=== PATIENT | male | born 1945 | race Hispanic/Latino ===

== ENCOUNTER 2017-09-17 18:08 | Emergency (ER) | payer MEDICARE ==
[2017-09-17 18:17] VITALS: BP 107/57; PULSE 88; RESP 18; TEMP 98.5; O2SAT 96
--- NOTE | 2017-09-17 19:42 | ED PDOC ---
Lower Extremity Pain/Injury Time Seen by Provider: 09/17/17 18:19 Chief Complaint (Nursing): Lower Extremity Problem/Injury Chief Complaint (Provider): Lower Extremity Problem/Injury History Per: Patient Onset/Duration Of Symptoms: Other (x today) Current Symptoms Are (Timing): Still Present Additional Complaint(s): Nahid is a 72 year old male who was brought by EMS to the Emergency Department for leg pain today. Patient states today he was getting off the train where he developed pain in his leg. States he does get pain in leg intermittently due to PVD. Reports he attempted to sit down, but fell forward. Denies pain from fall, hip pain, pelvic pain, numbness, tingling, and head injury. PMD: No Provider Past Medical History Reviewed: Historical Data, Nursing Documentation, Vital Signs Vital Signs: Last Vital Signs Temp 98.5 F 09/17/17 18:14 Pulse 88 09/17/17 18:14 Resp 18 09/17/17 18:14 BP 107/57 L 09/17/17 18:14 Pulse Ox 96 09/17/17 18:14 - Medical History PMH: Emphysema - Surgical History Surgical History: Carotid Endarterectomy - Family History Family History: States: No Known Family Hx - Social History Current smoker - smoking cessation education provided: No Alcohol: None Drugs: Denies - Allergies Allergies/Adverse Reactions: Allergies Allergy/AdvReac Type Severity Reaction Status Date / Time Penicillins Allergy ANAPHYLAXIS Verified 09/17/17 18:31 Review of Systems ROS Statement: Except As Marked, All Systems Reviewed And Found Negative Musculoskeletal: Positive for: Leg Pain (Bilateral). Negative for: Other (hip pain, pelvic pain) Neurological: Negative for: Numbness, Other (Tingling, head injury) Physical Exam - Reviewed Nursing Documentation Reviewed: Yes Vital Signs Reviewed: Yes - Physical Exam Appears: Positive for: Non-toxic Respiratory: Negative for: Respiratory Distress Pulses-Dorsalis Pedis (L): 1+ Pulses-Dorsalis Pedis (R): 1+ Extremity: Positive for: Calf Tenderness (Bilateral), Other (Chronic Venous Changes on Bilateral Lower Extremity). Negative for: Swelling (No Calf) - Laboratory Results Result Diagrams: 09/17/17 20:28 09/17/17 20:28 - ECG O2 Sat by Pulse Oximetry: 96 (RA) Pulse Ox Interpretation: Normal - Radiology X-Ray: Interpreted by Me (b/l tib/fib x-ray) X-Ray Interpretation: No Acute Disease Medical Decision Making Medical Decision Making: Time: 18:32 Plan: - B-Type Natriuretic Peptide - CMP - CBC - Left Tibia Fibula X-Ray - Right Tibia Fibula X-Ray - Urinalysis - Duplex Lower Extremity Vein Bilateral Ultrasound Time: 20:15 Ultrasound Duplex Bilateral Lower Extremity Veins FINDINGS: Right deep veins: Unremarkable. No DVT in the right common femoral, femoral, proximal deep femoral or popliteal veins. The veins demonstrate normal color flow, are normally compressible, with normal phasic flow and/or augmentation response. Right superficial veins: Unremarkable. Left deep veins: Unremarkable. No DVT in the left common femoral, femoral, proximal deep femoral or popliteal veins. The veins demonstrate normal color flow, are normally compressible, with normal phasic flow and/or augmentation response. Left superficial veins: Unremarkable. Soft tissues: No acute findings. No popliteal cyst. IMPRESSION: Normal bilateral lower extremity duplex venous ultrasound. Upon further questioning pt. states his truck broke down today and he has been walking the entire day which he usually does not. Pt. with slow, unassisted, steady gait in ED. Scribe Attestation: Documented by Prashant Martinez, acting as a scribe for Young Ortiz PA-C Provider Scribe Attestation: All medical record entries made by the Scribe were at my direction and personally dictated by me. I have reviewed the chart and agree that the record accurately reflects my personal performance of the history, physical exam, medical decision making, and the department course for this patient. I have also personally directed, reviewed, and agree with the discharge instructions and disposition. Disposition - Clinical Impression Clinical Impression: Leg pain - Patient ED Disposition Is Patient to be Admitted: No - Disposition Disposition: Routine/Home Disposition Time: 21:29 Condition: STABLE Instructions: Leg Pain (ED) Forms: [facility] (Kiswahili) Print Language: MONGOLIAN
--- NOTE | 2017-09-17 20:15 | US ---
EXAM: US Duplex Bilateral Lower Extremity Veins CLINICAL HISTORY: 72 years old, male; Pain; Leg, lower; Bilateral TECHNIQUE: Real-time ultrasound scan of the veins of the bilateral lower extremities with color Doppler flow, spectral waveform analysis and compression. COMPARISON: No relevant prior studies available. FINDINGS: Right deep veins: Unremarkable. No DVT in the right common femoral, femoral, proximal deep femoral or popliteal veins. The veins demonstrate normal color flow, are normally compressible, with normal phasic flow and/or augmentation response. Right superficial veins: Unremarkable. Left deep veins: Unremarkable. No DVT in the left common femoral, femoral, proximal deep femoral or popliteal veins. The veins demonstrate normal color flow, are normally compressible, with normal phasic flow and/or augmentation response. Left superficial veins: Unremarkable. Soft tissues: No acute findings. No popliteal cyst. IMPRESSION: Normal bilateral lower extremity duplex venous ultrasound.
[2017-09-17 20:31] LABS: BASO # 0.1 K/uL (0.0-0.2); BASO % 0.8 % (0.0-2.0); EOS # 0.1 K/uL (0.0-0.7); EOS % 0.9 % (0.0-4.0); HEMATOCRIT 42.2 % (35.0-51.0); LYMPH # 1.7 K/uL (1.0-4.3); MEAN CELL VOLUME 94.8 fl (80.0-94.0); MEAN CORPUSCULAR HEMOGLOBIN 31.2 pg (27.0-31.0); MEAN PLATELET VOLUME 8.4 fl (7.2-11.7); MONO # 0.6 K/uL (0.0-0.8); MONO % 6.4 % (0.0-10.0); NEUT % 73.9 % (50.0-75.0); RED CELL DISTRIBUTION WIDTH 13.8 % (11.5-14.5); WHITE BLOOD COUNT 9.5 K/uL (4.8-10.8)
[2017-09-17 20:46] LABS: ALB/GLOB RATIO 1.3 (1.0-2.1); BILIRUBIN,TOTAL 0.5 mg/dl (0.2-1.3); CALCIUM 9.3 mg/dL (8.4-10.2); CARBON DIOXIDE 28 mmol/L (22-30); CHLORIDE 106 mmol/L (98-107); GFR AFRICAN-AMERICAN > 60; GLUCOSE,RANDOM 157 mg/dL (75-110); SODIUM 145 mmol/l (132-148); TOTAL PROTEIN 7.5 G/DL (6.3-8.2)
[2017-09-17 20:54] LABS: ALKALINE PHOSPHATASE 50 U/L (38-126); ALT/SGPT 27 U/L (21-72); AST/SGOT 31 U/L (17-59); BLOOD UREA NITROGEN 24 mg/dl (9-20)
[2017-09-17 21:03] LABS: RBC URINE 1 /hpf (0-3); URINE BILIRUBIN NEGATIVE (NEGATIVE); URINE BLOOD NEGATIVE (NEGATIVE); URINE COLOR YELLOW (YELLOW); URINE GLUCOSE (UA) NEG (Normal); URINE KETONE TRACE mg/dL (NEGATIVE); URINE LEUKOCYTE ESTERASE NEG Leu/uL (Negative); URINE PROTEIN 30 mg/dL (NEGATIVE); URINE UROBILINOGEN 0.2-1.0 mg/dL (0.2-1.0); WBC URINE 1 /hpf (0-5)
--- NOTE | 2017-09-18 08:03 | RAD ---
PROCEDURE: Radiographs of the left tibia and fibula. HISTORY: trauma COMPARISON: None available. TECHNIQUE: Frontal and lateral views obtained. FINDINGS: BONES: No fracture or destructive lesion. JOINT SPACES: Unremarkable. OTHER FINDINGS: Reticular markings are diffusely increased of subcutaneous fat suggesting diffuse lower extremity edema. Clinically correlate. IMPRESSION: Unremarkable radiographs of the left tibia and fibula. Reticular changes seen throughout the subcutaneous fat of the lower leg suggests diffuse edema.
--- NOTE | 2017-09-18 08:04 | RAD ---
PROCEDURE: Radiographs of the right tibia and fibula. HISTORY: trauma COMPARISON: None available. TECHNIQUE: Frontal and lateral views obtained. FINDINGS: BONES: No fracture or destructive lesion. JOINT SPACES: Unremarkable. OTHER FINDINGS: Reticular markings are seen throughout the subcutaneous fat of the lower leg may indicate edema. IMPRESSION: Unremarkable radiographs of the right tibia and fibula. Question of edema throughout the lower leg given reticular changes throughout the subcutaneous fat diffusely noted.
== END 2017-09-17 21:55 | disposition home or self-care (01) ==
LOC: H.ER 18:08
DX: M79.606 Pain in leg, unspecified (principal); J43.9 Emphysema, unspecified; Z88.0 Allergy status to penicillin